=== PATIENT | female | born 1995 | race African-American/Black ===

== ENCOUNTER 2019-05-09 17:23 | Emergency (ER) | payer BC ==
[~2019-05-09] VITALS: Ht 162.6 cm; Wt 113.4 kg
[~2019-05-09 17:23] MED LIST: APAP500; AUGMENTIN 875875 MG PO; DERMOPLAST SPRA56 ML; IBUPROFEN 600600 M1; LANOLIN56 GM; MEDROL DOSPAK21 TAB PO; TUCKS MEDICATE1 EAC1; ZYRTEC10 M2 PO
[2019-05-09] MEDS ORDERED: CLARITIN10 MG PO (17:46)
[2019-05-09] MEDS ORDERED: DAYTIME COLD-F1 EACH PO (17:46)
[2019-05-09] MEDS ORDERED: TESSALON PERLE100 MG PO (19:39)
[2019-05-09] MEDS ORDERED: PREDNISONE 20 M20 MG PO (19:39)
[2019-05-09 20:02] VITALS: BP 118/70
--- NOTE | 2019-05-13 07:46 | EKG ---
[place] [address] [facility] [employer] [place] [address] ELECTROCARDIOGRAM REPORT Name: LEIGH ANN MA Room #: [facility] ([place], [place])#: [id number] Admission: 05/09/19 Attend Phys: Discharge: 05/09/19 Date of : [birth year] Report #: [id number] THIS REPORT FOR: //name// [facility] ED Test Date: 2019-05-09 Test Time: 17:30:26 Pat Name: LEIGH ANN MA Department: Room: Gender: F Hydrologist: COLBY : 1995 Requested By: Emanuel Minaya Order Number: [id number] MD: Sander Barakat Measurements Intervals [place] Rate: 105 P: 51 AR: 138 QRS: 33 QRSD: 86 T: -82 QT: 378 QTc: 500 Interpretive Statements Sinus tachycardia Nonspecific ST and T wave abnormality Prolonged QT interval Compared to ECG 04/05/2016 18:13:42 Premature ventricular complexes are now present Electronically Signed On 05-13-2019 7:46:23 CDT by Sander Barakat [email or web address] <ELECTRONICALLY SIGNED> By: Sander Barakat MD, [facility] 05/13/19 0746 29 29 Sander Barakat MD, [facility] /EPI
== END 2019-05-09 20:06 | disposition home or self-care (01) ==
LOC: ER 17:23
DX: J06.9 Acute upper respiratory infection, unspecified (principal)